=== PATIENT | female | born 1995 | race Caucasian/White ===

== ENCOUNTER 2020-08-18 00:14 | Emergency (ER) | payer SELFPAY ==
--- NOTE | 2020-08-18 | US_ITS ---
EXAMINATION: ULTRASOUND PELVIS, COMPLETE CLINICAL INFORMATION: Right lower quadrant pain. COMPARISON: 09/12/2013 TECHNIQUE: Transabdominal and transvaginal imaging of the pelvic viscera was performed utilizing grayscale and color Doppler technique with spectral analysis. FINDINGS: Uterus normal in size and configuration measuring 7.1 x 2.7 x 4.6 cm. Endometrial signature measures 0.4 cm and is homogeneous. No uterine mass or endometrial abnormalities. Cervix unremarkable. Right ovary contains a 4.3 x 3.3 x 4.1 cm complicated cyst which appears to contain contracted clot. Right ovary is splayed around this cyst and measures 5.2 x 4.0 x 3.8 cm. Left ovary measures 3.4 x 2.8 x 2.3 cm and shows multiple peripherally distributed similar size small follicles with a echogenic central stroma, as can be seen with polycystic ovarian syndrome. Normal arterial and venous waveforms present within both ovaries. US/US pelvic complete IMPRESSION: No evidence of ovarian torsion. Right ovarian hemorrhagic cyst measuring 4.3 cm. Consider follow-up ultrasound in 4-6 weeks to confirm resolution.
[2020-08-18 00:23] VITALS: BP 126/77; PULSE 78; RESP 16; TEMP 36.9; O2SAT 99; BMI 29.4
--- NOTE | 2020-08-18 00:39 | US_ITS ---
EXAMINATION: ULTRASOUND PELVIS, COMPLETE CLINICAL INFORMATION: Right lower quadrant pain. COMPARISON: 09/12/2013 TECHNIQUE: Transabdominal and transvaginal imaging of the pelvic viscera was performed utilizing grayscale and color Doppler technique with spectral analysis. FINDINGS: Uterus normal in size and configuration measuring 7.1 x 2.7 x 4.6 cm. Endometrial signature measures 0.4 cm and is homogeneous. No uterine mass or endometrial abnormalities. Cervix unremarkable. Right ovary contains a 4.3 x 3.3 x 4.1 cm complicated cyst which appears to contain contracted clot. Right ovary is splayed around this cyst and measures 5.2 x 4.0 x 3.8 cm. Left ovary measures 3.4 x 2.8 x 2.3 cm and shows multiple peripherally distributed similar size small follicles with a echogenic central stroma, as can be seen with polycystic ovarian syndrome. Normal arterial and venous waveforms present within both ovaries. US/US transvaginal IMPRESSION: No evidence of ovarian torsion. Right ovarian hemorrhagic cyst measuring 4.3 cm. Consider follow-up ultrasound in 4-6 weeks to confirm resolution.
--- NOTE | 2020-08-18 00:39 | ED_ITS ---
HPI - Female Genitourinary General Chief complaint: Urogenital-Female Stated complaint: ABD PAIN Time Seen by Provider: 08/18/20 00:25 Source: patient Mode of arrival: ambulatory Limitations: no limitations History of Present Illness HPI Narrative: This is a 24-year-old female who presents with acute onset right lower quadrant discomfort that started approximately 1 hour ago and is associated with nausea and chills but otherwise denies any urinary pain/burning/frequency, diarrhea. Patient states her LMP was around Thanksgiving and she started an OCP approximately 2 weeks ago. She is sexually active and states that previously she has had this right-sided pain before and has a history of having multiple ultrasounds for evaluation and is known to have ovarian cysts. Related Data Allergies Allergy/AdvReac Type Severity Reaction Status Date / Time No Known Allergies Allergy Verified 08/18/20 00:23 [No Known Allergies*] Review of Systems Review of Systems: Pertinent positives and negatives as stated in HPI and 10 point review of systems is otherwise negative. [facility] Past Medical History Source: nursing notes reviewed Social History Social History Advance Directives: No Physical Exam Vital Signs: Vital Signs: Last Vital Signs Temp 98.5 F 08/18/20 00:23 Pulse 78 08/18/20 00:23 Resp 16 08/18/20 00:23 BP 126/77 08/18/20 00:23 Pulse Ox 99 08/18/20 00:23 Body Mass Index 29.4 VITAL SIGNS: Reviewed. GENERAL: Well developed, well nourished, in no acute distress. HEAD: Normocephalic/atraumatic, EYES: PERRLA, EOMI intact without pain, no nystagmus/pallor/icterus noted EARS: Ext canals without abnormality, TMs non-bulging and non-erythematous NOSE: Nares patent bilateral OROPHARYNX: no oral lesions noted, posterior pharynx clear and non-erythematous without noted tonsillar enlargement/erythema/exudates NECK: Supple, no adenopathy LUNGS: Normal breath sounds. No adventitious sounds or accessory muscle use. SpO2<99> CARDIOVASCULAR: Regular rate and rhythm without noted murmurs, no JVD or lower extremity edema. ABDOMEN: Soft, maximal tenderness in the right lower quadrant with more mild tenderness over the suprapubic area, non-distended with bowel sounds. No rigidity. No guarding. No palpable masses or hernias noted MUSCULOSKELETAL: No tenderness, deformities, or effusions noted on gross inspection. EXTREMITIES: No cyanosis, clubbing or edema. SKIN: Inspection of the skin reveals no rashes, ulcerations, jaundice, pallor, or petechiae. NEUROLOGIC: Alert and oriented x 4. Strength and sensation to light touch were grossly intact x 4. Course Course Course Narrative: This is a 24-year-old female with history and clinical p resentation suggestive of possible appendicitis, renal colic, ruptured ovarian cyst, and less likely ovarian torsion or UTI. -UA, U preg, CBC, CMP, transvaginal/pelvic Doppler On review of all investigations there is no evidence of infection, ovarian torsion, ectopic , UTI. Ultrasound does illustrate a right hemorrhagic cyst and recommendations are for follow-up in 4-6 weeks. All results and findings were discussed with the patient at bedside and she was discharged in stable condition with recommendations for combination analgesics to help manage the discomfort. MDM - Female Genitourinary Lab Data Result diagrams: 08/18/20 01:01 08/18/20 01:01 Labs: Lab Results 08/18/20 08/18/20 08/18/20 Range/Units 00:34 01:01 01:01 WBC 7.5 (4.8-10.8) X10*3/uL RBC 3.83 L (4.20-5.50) X10*6/uL Hgb 11.6 L (12.0-16.0) g/dl Hct 35.0 L (37-47) % MCV 91.4 (80-98) fL MCH 30.3 (27.0-33.0) pg MCHC 33.1 (31.0-35.0) g/dl RDW 11.8 (11.0-16.0) % Plt Count 232 (160-400) X10*3/uL MPV 9.5 (9.4-12.3) fL Immature Gran % (Auto) 0.1 (0.0-0.4) % Neut % (Auto) 52.5 (45-73) % Lymph % (Auto) 39.2 (20-40) % [place] % (Auto) 6.1 (2-11) % Eos % (Auto) 1.7 (0-4) % Baso % (Auto) 0.4 (0-2) % Lymph # (Auto) 2.9 (1.2-4.9) X10*3/uL [place] # (Auto) 0.5 (0.1-1.2) X10*3/uL Eos # (Auto) 0.1 (0.0-0.4) X10*3/uL Baso # (Auto) 0.0 (0.0-0.2) X10*3/uL Abs Immat Gran (auto) 0.01 (0.00-0.03) X10*3/uL Absolute Neuts (auto) 3.9 (2.0-8.3) X10*3/uL Absolute Nucleated RBC 0.000 (0.0-0.012) X10*3/uL Nucleated RBC % (auto) 0.0 (0.0-0.2) /100WBC Sodium 137 (135-145) mmol/L Potassium 4.6 (3.3-5.1) mmol/l Chloride 105 (96-108) mmol/L Carbon Dioxide 22 (22-29) mmol/L Anion Gap 15 (12-20) BUN 13 (9-16) mg/dL Creatinine 0.70 (0.5-1.4) mg/dL Estim Creat Clear Calc 129.7 Estimated GFR > 60 Random Glucose 87 (60-115) mg/dL Calcium 8.7 (8.4-10.2) mg/dL Total Bilirubin 0.4 (0.0-1.0) mg/dL AST 22 (5-31) U/L ALT 12 (0-31) U/L Alkaline Phosphatase 43 (39-117) U/L Total Protein 7.0 (6.5-8.0) g/dL Albumin 4.2 (3.5-5.0) g/dL Urine Color YELLOW Urine Appearance CLEAR Urine pH 6.0 (5.0-8.0) Ur Specific [place] 1.010 (1.005-1.025) Urine Protein NEG (NEG-TRACE) MG/DL Urine Glucose (UA) NEG (NEG) MG/DL Urine Ketones 5 (NEG) MG/DL Urine Blood NEG (NEG) Urine Nitrite NEG (NEG) Ur Leukocyte Esterase NEG (NEG) Urine Test NEGATIVE (NEGATIVE) Discharge Plan Discharge Clinical Impression: Hemorrhagic cyst of right ovary Patient Disposition: Home, Self-Care Instructions: Ovarian Cyst (ED) Additional Instructions: 1. Tylenol 1000 mg, orally, every 6 hours as needed for pain control. Do not exceed 4000 mg within 24 hours. 2. Ibuprofen 400 mg, orally with milk or food, every 6 hours as needed for pain control. 3. May use heating pad as an adjunct for additional symptom relief. 4. You need to follow-up with your primary care provider or your rn coronary care unit for repeat ultrasound in 4-6 weeks. 5. Please do not hesitate to return to the emergency department if you have any acute change in your symptoms. The patient and/or family acknowledge understanding of results (as applicable), diagnosis, treatment plan, need for follow up, and symptoms that should prompt a return to the emergency room. Referrals: Physician,None [Primary Care Provider] - 2 days (Re-evaluation management)
--- NOTE | 2020-08-18 00:39 | US_ITS ---
EXAMINATION: ULTRASOUND PELVIS, COMPLETE CLINICAL INFORMATION: Right lower quadrant pain. COMPARISON: 09/12/2013 TECHNIQUE: Transabdominal and transvaginal imaging of the pelvic viscera was performed utilizing grayscale and color Doppler technique with spectral analysis. FINDINGS: Uterus normal in size and configuration measuring 7.1 x 2.7 x 4.6 cm. Endometrial signature measures 0.4 cm and is homogeneous. No uterine mass or endometrial abnormalities. Cervix unremarkable. Right ovary contains a 4.3 x 3.3 x 4.1 cm complicated cyst which appears to contain contracted clot. Right ovary is splayed around this cyst and measures 5.2 x 4.0 x 3.8 cm. Left ovary measures 3.4 x 2.8 x 2.3 cm and shows multiple peripherally distributed similar size small follicles with a echogenic central stroma, as can be seen with polycystic ovarian syndrome. Normal arterial and venous waveforms present within both ovaries. US/US pelvic ovarian doppler IMPRESSION: No evidence of ovarian torsion. Right ovarian hemorrhagic cyst measuring 4.3 cm. Consider follow-up ultrasound in 4-6 weeks to confirm resolution.
[2020-08-18 00:42] LABS: Glucose Urine UA NEG (NEG); Leukocyte Esterase Urine NEG (NEG); Nitrite Urine NEG (NEG); Urine Blood NEG (NEG); Urine Ketones 5 MG/DL (NEG); Urine Protein NEG (NEG-TRACE)
[2020-08-18 00:44] LABS: Appearance Urine CLEAR; Color Urine YELLOW
[2020-08-18 00:45] LABS: UPreg QC Valid YES; Urine Pregnancy NEGATIVE (NEGATIVE)
[2020-08-18 01:07] LABS: Basophils Percent Auto 0.4 % (0-2); Eosinophils Absolute Auto 0.1 X10*3/uL (0.0-0.4); Eosinophils Percent Auto 1.7 % (0-4); Hemoglobin 11.6 g/dl (12.0-16.0); Imm Gran Abs Auto 0.01 X10*3/uL (0.00-0.03); Imm Gran Pct Auto 0.1 % (0.0-0.4); Lymphocytes Absolute Auto 2.9 X10*3/uL (1.2-4.9); Lymphocytes Percent Auto 39.2 % (20-40); Mean Corpuscular HGB Conc 33.1 g/dl (31.0-35.0); Mean Corpuscular Hemoglobin 30.3 pg (27.0-33.0); Mean Corpuscular Volume 91.4 fL (80-98); Mean Platelet Volume 9.5 fL (9.4-12.3); Monocytes Absolute Auto 0.5 X10*3/uL (0.1-1.2); Monocytes Percent Auto 6.1 % (2-11); Neutrophils Absolute Auto 3.9 X10*3/uL (2.0-8.3); Neutrophils Percent Auto 52.5 % (45-73); Platelet Count 232 X10*3/uL (160-400); Red Blood Count 3.83 X10*6/uL (4.20-5.50); Red Cell Distribution Width 11.8 % (11.0-16.0); White Blood Count 7.5 X10*3/uL (4.8-10.8)
[2020-08-18 01:08] LABS: MANUAL DIFF FLAG NO
[2020-08-18 01:49] LABS: Alanine Aminotransferase 12 U/L (0-31); Albumin Level 4.2 g/dL (3.5-5.0); Alkaline Phosphatase 43 U/L (39-117); Anion Gap 15 (12-20); Aspartate Amino Transferase 22 U/L (5-31); Bilirubin Total 0.4 mg/dL (0.0-1.0); Blood Urea Nitrogen 13 mg/dL (9-16); Calcium 8.7 mg/dL (8.4-10.2); Carbon Dioxide 22 mmol/L (22-29); Chloride 105 mmol/L (96-108); Creatinine Clr Calc Pharmacy 129.7; Estimated Glomerular Filt Rate > 60; Glucose Random 87 mg/dL (60-115); Potassium 4.6 mmol/l (3.3-5.1); Sodium 137 mmol/L (135-145)
[2020-08-18 02:00] VITALS: BP 118/70; PULSE 70; RESP 16; TEMP 36.7; O2SAT 99
== END 2020-08-18 02:48 | disposition home or self-care (01) ==
PROVIDERS: Emergency Provider Student in an Organized Health Care Education/Training Program
DX: N83.201 Unspecified ovarian cyst, right side (principal)
CPT/HCPCS: 36415; 76830; 76856; 80053; 81003; 81025; 85025; 93975; 99284

== ENCOUNTER 2020-09-27 17:28 | Emergency (ER) | payer OTHER, SELFPAY ==
[2020-09-27 17:45] VITALS: BP 124/77; PULSE 87; RESP 18; TEMP 37.1; O2SAT 98; BMI 23.4
[2020-09-27 18:06] LABS: Glucose Urine UA NEG (NEG); Leukocyte Esterase Urine NEG (NEG); Nitrite Urine NEG (NEG); Urine Blood NEG (NEG); Urine Ketones NEG (NEG); Urine Protein NEG (NEG-TRACE)
[2020-09-27 18:11] LABS: Appearance Urine CLEAR; Color Urine STRAW
[2020-09-27 18:12] LABS: UPreg QC Valid YES; Urine Pregnancy NEGATIVE (NEGATIVE)
--- NOTE | 2020-09-27 18:48 | ED.GENADULT ---
HPI - General Adult General Chief complaint: General Medical Stated complaint: MIGRAINE Time Seen by Provider: 09/27/20 18:22 Source: patient Mode of arrival: ambulatory Limitations: no limitations History of Present Illness HPI narrative: 24-year-old female who presents emergency department for evaluation of headache x1 week. The patient states that she has a history of migraines. She developed a headache 1 week prior which she describes as a constant, pressure-like sensation which is located throughout her entire head and is 10/10 at its worst. At the time of evaluation the pain was 5/10. She states that she has nausea but no vomiting associated with the headache. She states that she has had changes in her sense of taste and smell. The patient was seen 24 hours prior at [facility] Emergency Department and had a negative COVID-19 test, unremarkable blood work and was treated with IV medications with some relief for pain. She states that her pain did not go away completely and has persisting therefore she came to our emergency department for re-evaluation. The patient states she has been taking ibuprofen and Excedrin without relief for pain. She has also tried NyQuil and DayQuil. She denied fever, chills, myalgias, arthralgias, diarrhea, fatigue or weakness. Related Data Previous Rx's Medication Instructions Recorded metoclopramide HCl [Reglan] 10 mg PO Q6H PRN #14 tab 09/27/20 Allergies Allergy/AdvReac Type Severity Reaction Status Date / Time No Known Allergies Allergy Verified 09/27/20 17:42 [No Known Allergies*] Review of Systems Review of Systems: Yes all other systems are reviewed and are negative Neurologic: Reports Abnormal speech present [facility] Past Medical History [facility] Narrative: Patient has a history of migraine headaches, ovarian cysts and psoriasis. She denies tobacco, and drug use. She occasionally drinks alcohol. Social History Social History Advance Directives: No Advance Directives Information Provided: No Physical Exam Vital Signs: Vital Signs: Last Vital Signs Temp 98.8 F 09/27/20 17:45 Pulse 87 09/27/20 17:45 Resp 18 09/27/20 17:45 BP 124/77 09/27/20 17:45 Pulse Ox 98 09/27/20 17:45 Body Mass Index 23.4 Const: General: cooperative and healthy appearing Orientation/consciousness: oriented to person and oriented to place Limitations: no limitations HENMT: Head: Yes normal to inspection, Yes normocephalic and Yes atraumatic Ears: external ears normal General nose exam: Normal external nose present Face and sinus: Yes normal facial exam Mouth: Normal oral and palatal mucosa present Throat: Yes posterior oropharynx normal Eyes: Periorbital: periorbital findings normal Eyelids: Yes eyelids normal Conjunctivae: conjunctivae normal Sclerae: sclerae normal Corneas: corneas normal Pupils: Equal, round and reactive pupils present Direct Ophthalmoscopy: normal light reflex Neck: Neck: Yes full ROM, Yes no lymphadenopathy, Yes no meningeal signs, Yes trachea midline and Yes supple Chest: Chest palpation & inspection: normal inspection of the chest and normal palpation of entire chest wall Resp: Effort & Inspection: normal respiratory effort and able to speak in complete sentences Auscultation: clear to auscultation bilaterally Cardio: Rate: regular rate Rhythm: regular rhythm Heart sounds: S1 normal heart sound present, S2 normal heart sound present and no murmurs GI: Inspection: Yes normal to inspection Palpation (GI): Soft to palpation, nontender, no guarding, not rigid and No hepatosplenomegaly present : General: Yes no CVA tenderness Back/Spine/Pelvis: Back: no CVA tenderness Cervical Spine: normal cervical lordosis Thoracic/Lumbar Spine: thoracic and lumbar spine normal to inspection Skin: Lesions: no lesions Rashes: no rashes Wounds: no wounds Neuro: General: oriented to person, oriented to place and no meningeal signs Cranial nerves: Yes CN's II-XII intact bilaterally and Yes Equal, round and reactive pupils present Cognition (Neuro): normal cognition Speech: Abnormal speech present Motor exam (neuro): 5/5 motor strength present throughout Extrem: General: Yes normal to inspection and Yes full ROM Psych: Appearance: well kempt Mental Status: mental status grossly normal Speech and movement: Normal speech and movement present Affect: normal affect Attitude: cooperative Thought process: Normal thought process present Thought content: Normal thought content present Course Course Course Narrative: 24-year-old female with a history of migraine headaches who presents emergency department for evaluation of a headache x1 week. The patient was seen at [facility] yesterday and had negative COVID-19 test. Her examination at this time is unremarkable. My impression is that her headache is secondary to her migraine syndrome and I did discuss this with her. I did discuss the possibility of a false negative COVID and I told the patient that she should self isolate for 7 days and then get a repeat COVID test. The patient did not want IV medications at this time and wants to try something that she can take at home orally. The patient was started on the following regimen every 6 hours as needed for headache: Reglan 10 mg, Benadryl 50 mg, Excedrin migraine 1 tablet. She was given printed and verbal instructions and discharged home, she was advised to return to the emergency department if her symptoms get worse or she develops any symptoms that are concerning to her. Medical Decision Making Lab Data Labs: Lab Results 09/27/20 Range/Units 17:54 Urine Color STRAW Urine Appearance CLEAR Urine pH 6.0 (5.0-8.0) Ur Specific [place] 1.010 (1.005-1.025) Urine Protein NEG (NEG-TRACE) MG/DL Urine Glucose (UA) NEG (NEG) MG/DL Urine Ketones NEG (NEG) MG/DL Urine Blood NEG (NEG) Urine Nitrite NEG (NEG) Ur Leukocyte Esterase NEG (NEG) Urine Test NEGATIVE (NEGATIVE) Discharge Plan Discharge Clinical Impression: Migraine Qualifiers: Migraine type: without aura Status migrainosus presence: without status migrainosus Intractability: not intractable Qualified Code(s): G43.009 - Migraine without aura, not intractable, without status migrainosus Patient Disposition: Home, Self-Care Instructions: Acute Headache (ED) Additional Instructions: At this time, I suspect that your headache is caused by your migraine syndrome and this is just a different migraine headache for you. COVID-19 infection still needs to be considered as a possible cause of your headache. You will need a repeat COVID-19 test in 3-7 days. You will need to self isolate until you know the result of your neck is test. And take the following medications together every 6 hours as needed for your headache. Excedrin migraine 1 pill Benadryl 25 mg pills, 2 pills Reglan (metoclopramide) 10 mg pills, 1 pill. This medication treat migraines and nausea and vomiting. After you take these medications, lie down in a dark quiet room and try to fall asleep. These medications will make you sleepy. Do not drive while taking these medications. Follow-up with your doctor in 2 days. Please return to the emergency department if your symptoms get worse or if you develop any symptoms that are concerning to you. Prescriptions: New metoclopramide HCl [Reglan] 10 mg tablet 10 mg PO Q6H PRN (Reason: nausea and vomiting) Qty: 14 RF: 0
== END 2020-09-27 19:00 | disposition home or self-care (01) ==
PROVIDERS: Internal Medicine; Emergency Provider Emergency Medicine Emergency Medical Services
DX: G43.009 Migraine without aura, not intractable, without status migrainosus (principal); Z20.822 Contact with and (suspected) exposure to COVID-19; Z79.899 Other long term (current) drug therapy
CPT/HCPCS: 81003; 81025; 99283

== ENCOUNTER 2020-11-09 00:56 | Emergency (ER) | payer OTHER, SELFPAY ==
--- NOTE | ~2020-11-09 | US_ITS ---
EXAMINATION: ULTRASOUND PELVIS CLINICAL INFORMATION: Pain COMPARISON: 08/18/2020 TECHNIQUE: Sonographic evaluation of the pelvis was performed transabdominally and transvaginally. Color Doppler and spectral analysis was utilized. FINDINGS: The uterus measures 6.5 cm in length and 3.7 x 4.4 cm in AP and transverse dimensions. The endometrial stripe measures 0.4 cm in thickness. The right ovary measures 6.7 x 3.0 x 4.5 cm and contains a cystic structure measuring 5.0 x 3.0 x 4.1 cm with minimal internal echoes. There is also a hypoechoic region in the right ovary measuring 1.6 x 1.1 x 1.1 cm. Doppler evaluation demonstrates arterial and venous waveforms in the right ovary. The left ovary measures 3.3 x 2.7 x 2.6 cm and appears unremarkable. Doppler evaluation demonstrates arterial and venous waveforms in the left ovary. Moderate amount of pelvic free fluid is noted. US/US pelvic ovarian doppler IMPRESSION: 1. Right ovarian cyst measuring up to 5.0 cm. There is also a hypoechoic structure in the right ovary measuring 1.6 cm which may reflect sequelae of a residual hemorrhagic cyst when compared to prior study of 08/18/2020. Sonographic follow-up in 6-8 weeks may be performed to assess for resolution. 2. Moderate amount of pelvic free fluid. 3. Normal arterial and venous waveforms in the ovaries.
--- NOTE | ~2020-11-09 | US_ITS ---
EXAMINATION: ULTRASOUND PELVIS CLINICAL INFORMATION: Pain COMPARISON: 08/18/2020 TECHNIQUE: Sonographic evaluation of the pelvis was performed transabdominally and transvaginally. Color Doppler and spectral analysis was utilized. FINDINGS: The uterus measures 6.5 cm in length and 3.7 x 4.4 cm in AP and transverse dimensions. The endometrial stripe measures 0.4 cm in thickness. The right ovary measures 6.7 x 3.0 x 4.5 cm and contains a cystic structure measuring 5.0 x 3.0 x 4.1 cm with minimal internal echoes. There is also a hypoechoic region in the right ovary measuring 1.6 x 1.1 x 1.1 cm. Doppler evaluation demonstrates arterial and venous waveforms in the right ovary. The left ovary measures 3.3 x 2.7 x 2.6 cm and appears unremarkable. Doppler evaluation demonstrates arterial and venous waveforms in the left ovary. Moderate amount of pelvic free fluid is noted. US/US transvaginal IMPRESSION: 1. Right ovarian cyst measuring up to 5.0 cm. There is also a hypoechoic structure in the right ovary measuring 1.6 cm which may reflect sequelae of a residual hemorrhagic cyst when compared to prior study of 08/18/2020. Sonographic follow-up in 6-8 weeks may be performed to assess for resolution. 2. Moderate amount of pelvic free fluid. 3. Normal arterial and venous waveforms in the ovaries.
--- NOTE | ~2020-11-09 | US_ITS ---
EXAMINATION: ULTRASOUND PELVIS CLINICAL INFORMATION: Pain COMPARISON: 08/18/2020 TECHNIQUE: Sonographic evaluation of the pelvis was performed transabdominally and transvaginally. Color Doppler and spectral analysis was utilized. FINDINGS: The uterus measures 6.5 cm in length and 3.7 x 4.4 cm in AP and transverse dimensions. The endometrial stripe measures 0.4 cm in thickness. The right ovary measures 6.7 x 3.0 x 4.5 cm and contains a cystic structure measuring 5.0 x 3.0 x 4.1 cm with minimal internal echoes. There is also a hypoechoic region in the right ovary measuring 1.6 x 1.1 x 1.1 cm. Doppler evaluation demonstrates arterial and venous waveforms in the right ovary. The left ovary measures 3.3 x 2.7 x 2.6 cm and appears unremarkable. Doppler evaluation demonstrates arterial and venous waveforms in the left ovary. Moderate amount of pelvic free fluid is noted. US/US pelvic complete IMPRESSION: 1. Right ovarian cyst measuring up to 5.0 cm. There is also a hypoechoic structure in the right ovary measuring 1.6 cm which may reflect sequelae of a residual hemorrhagic cyst when compared to prior study of 08/18/2020. Sonographic follow-up in 6-8 weeks may be performed to assess for resolution. 2. Moderate amount of pelvic free fluid. 3. Normal arterial and venous waveforms in the ovaries.
[2020-11-09 01:22] VITALS: BP 120/82; PULSE 81; RESP 16; TEMP 36.7; O2SAT 100
--- NOTE | 2020-11-09 01:33 | ED.ABDPAIN ---
HPI - Abdominal Pain General Chief Complaint: Abdominal Pain Stated Complaint: Abd pain Time Seen by Provider: 11/09/20 01:33 Source: patient Mode of arrival: ambulatory Limitations: no limitations History of Present Illness HPI narrative: 24 yo female with abrupt onset pelvic pain hx of ovarian cysts on OCPs, pain caused n/v and feeling of having BM, had a normal day prior to this MD elicited complaint: abdominal pain Pertinent past history: other (ovarian cysts) Onset (ago): hour(s) (couple) Pain Consistency: constant Location: suprapubic and pelvis Severity: moderate Quality: stabbing Radiation: epigastric Migration to: no migration Exacerbating factors: vomiting and movement Relieving factors: nothing Context: history of similar episodes Associated symptoms: nausea and vomiting Related Data Previous Rx's Medication Instructions Recorded metoclopramide HCl [Reglan] 10 mg PO Q6H PRN #14 tab 09/27/20 hydrocodone-acetaminophen 1 tab PO Q6H PRN #12 tab 11/09/20 ondansetron 4 mg PO Q8H PRN #20 tab 11/09/20 Allergies Allergy/AdvReac Type Severity Reaction Status Date / Time No Known Allergies Allergy Verified 09/27/20 17:42 [No Known Allergies*] Review of Systems Review of Systems Constitutional : No Weight loss, No Fever, No Chills ENT/Mouth : No sore throat, No Rhinorrhea Eyes: No Swelling, No Redness Cardiovascular : No Chest Pain, No SOB, NoEdema Respiratory : No Cough, No Sputum, No Wheezing Gastrointestinal : Positive Nausea, Positive Vomiting, no Diarrhea, positive abdominal Pain, No Hematochezia, No Melena Genitourinary : No Dysuria, No Urinary Frequency, No Hematuria, No Urgency Musculoskeletal : No joint pain, No Myalgias, No Joint Swelling Skin : No Skin Lesions, No rash Neuro : No Weakness, No Numbness, No Dizziness, No Headache Psych : No Anxiety/Panic, No Depression Heme/Lymph: No Bruising, No Lymphadenopathy Endocrine : No Polyuria, No Polydipsia All other systems reviewed and are negative. Physical Exam Vital Signs: Vital Signs: Last Vital Signs Temp 98.0 F 11/09/20 01:22 Pulse 74 11/09/20 02:00 Resp 16 11/09/20 02:00 BP 119/66 11/09/20 02:00 Pulse Ox 100 11/09/20 02:00 Body Mass Index 30.0 Appearance: Alert. Oriented X3. No acute distress. Eyes: Pupils equal, round and reactive to light. ENT: Pharynx normal. Neck: Normal inspection. Neck supple. CVS: Normal heart rate and rhythm. Pulses normal. Respiratory: No respiratory distress. Breath sounds normal. Abdomen: Soft and moderate ttp in suprapubic as well as RLQ and LLE pain no rebound or guarding Skin: Skin warm and dry. Normal skin color. Normal skin turgor. Extremities: No lower extremity edema. No calf ttp Neuro: Oriented X 3. No motor deficit. No sensory deficit. Course Course Course Narrative: repeat H/H stable MDM - Abdominal Pain MDM Narrative Medical decision making narrative: 24 yo female with hx of ovarian cysts here with lower abdominal pain abrupt onset in nature - feels like a cyst but somewhat worse, felt fine all day appendicitis seems unusual will need labs, IV morphine for pain, US to evaluate ovaries for suspected ruptured cyst Lab Data Result diagrams: 11/09/20 02:25 11/09/20 Unknown Labs: Lab Results 11/09/20 11/09/20 11/09/20 Range/Units 02:25 02:25 02:29 WBC 6.8 (4.8-10.8) X10*3/uL RBC 3.94 L (4.20-5.50) X10*6/uL Hgb 12.0 (12.0-16.0) g/dl Hct 36.4 L (37-47) % MCV 92.4 (80-98) fL MCH 30.5 (27.0-33.0) pg MCHC 33.0 (31.0-35.0) g/dl RDW 11.9 (11.0-16.0) % Plt Count 258 (160-400) X10*3/uL MPV 9.3 L (9.4-12.3) fL Immature Gran % (Auto) 0.1 (0.0-0.4) % Neut % (Auto) 62.7 (45-73) % Lymph % (Auto) 27.7 (20-40) % [place] % (Auto) 7.8 (2-11) % Eos % (Auto) 1.3 (0-4) % Baso % (Auto) 0.4 (0-2) % Lymph # (Auto) 1.9 (1.2-4.9) X10*3/uL [place] # (Auto) 0.5 (0.1-1.2) X10*3/uL Eos # (Auto) 0.1 (0.0-0.4) X10*3/uL Baso # (Auto) 0.0 (0.0-0.2) X10*3/uL Abs Immat Gran (auto) 0.01 (0.00-0.03) X10*3/uL Absolute Neuts (auto) 4.2 (2.0-8.3) X10*3/uL Absolute Nucleated RBC 0.000 (0.0-0.012) X10*3/uL Nucleated RBC % (auto) 0.0 (0.0-0.2) /100WBC PT 10.7 L (10.8-13.0) SEC INR 0.9 (0.9-1.1) APTT 31.9 (24.1-38.0) SEC Sodium (135-145) mmol/L Potassium (3.3-5.1) mmol/L Chloride (96-108) mmol/L Carbon Dioxide (22-29) mmol/L Anion Gap (12-20) BUN (9-16) mg/dL Creatinine (0.5-1.4) mg/dL Estim Creat Clear Calc Estimated GFR Random Glucose (60-115) mg/dL Calcium (8.4-10.2) mg/dL Magnesium (1.6-2.6) mg/dL Total Bilirubin (0.0-1.0) mg/dL Direct Bilirubin (0.0-0.5) mg/dL AST (5-31) U/L ALT (0-31) U/L Alkaline Phosphatase (39-117) U/L Total Protein (6.5-8.0) g/dL Albumin (3.5-5.0) g/dL Lipase (8-78) U/L Specimen Comment DELAY 11/09/20 Range/Units Unknown WBC (4.8-10.8) X10*3/uL RBC (4.20-5.50) X10*6/uL Hgb (12.0-16.0) g/dl Hct (37-47) % MCV (80-98) fL MCH (27.0-33.0) pg MCHC (31.0-35.0) g/dl RDW (11.0-16.0) % Plt Count (160-400) X10*3/uL MPV (9.4-12.3) fL Immature Gran % (Auto) (0.0-0.4) % Neut % (Auto) (45-73) % Lymph % (Auto) (20-40) % [place] % (Auto) (2-11) % Eos % (Auto) (0-4) % Baso % (Auto) (0-2) % Lymph # (Auto) (1.2-4.9) X10*3/uL [place] # (Auto) (0.1-1.2) X10*3/uL Eos # (Auto) (0.0-0.4) X10*3/uL Baso # (Auto) (0.0-0.2) X10*3/uL Abs Immat Gran (auto) (0.00-0.03) X10*3/uL Absolute Neuts (auto) (2.0-8.3) X10*3/uL Absolute Nucleated RBC (0.0-0.012) X10*3/uL Nucleated RBC % (auto) (0.0-0.2) /100WBC PT (10.8-13.0) SEC INR (0.9-1.1) APTT (24.1-38.0) SEC Sodium 137 (135-145) mmol/L Potassium 4.3 (3.3-5.1) mmol/L Chloride 105 (96-108) mmol/L Carbon Dioxide 25 (22-29) mmol/L Anion Gap 10 L (12-20) BUN 16 (9-16) mg/dL Creatinine 0.66 (0.5-1.4) mg/dL Estim Creat Clear Calc 134.0 Estimated GFR > 60 Random Glucose 102 (60-115) mg/dL Calcium 8.9 (8.4-10.2) mg/dL Magnesium 1.8 (1.6-2.6) mg/dL Total Bilirubin 0.2 (0.0-1.0) mg/dL Direct Bilirubin < 0.2 (0.0-0.5) mg/dL AST 14 (5-31) U/L ALT 14 (0-31) U/L Alkaline Phosphatase 43 (39-117) U/L Total Protein 6.7 (6.5-8.0) g/dL Albumin 4.3 (3.5-5.0) g/dL Lipase 26 (8-78) U/L Specimen Comment Discharge Plan Discharge Clinical Impression: Ovarian cyst rupture, Ovarian cyst Patient Disposition: Home, Self-Care Instructions: Ruptured Ovarian Cyst (ED) Additional Instructions: return to ED for any worsening symptoms or concerns REPEAT ULTRASOUND IN 4 WEEKS Prescriptions: New hydrocodone-acetaminophen 5-325 mg tablet 1 tab PO Q6H PRN (Reason: pain) Qty: 12 RF: 0 ondansetron 4 mg tablet,disintegrating 4 mg PO Q8H PRN (Reason: nausea and vomiting) Qty: 20 RF: 0 No Action metoclopramide HCl [Reglan] 10 mg tablet 10 mg PO Q6H PRN (Reason: nausea and vomiting) Qty: 14 RF: 0 Referrals: Physician,None [Primary Care Provider] - 1 week Stand Alone Forms: Work/School Release [facility] Past Medical History Attestation statement: The following information was validated with the patient. Medical History Ovarian cyst Social History Social History (Updated 11/09/20 @ 01:37 by Juana Mosley DO) Alcohol intake: never Smoking Status: Never smoker Use of substances other than those prescribed or required for medical reasons: No Advance Directives: No Advance Directives Information Provided: No
[2020-11-09 02:00] VITALS: BP 119/66; PULSE 74; RESP 16; O2SAT 100
[2020-11-09 02:30] LABS: Delay - Chemistry DELAY
[2020-11-09 02:32] LABS: Basophils Percent Auto 0.4 % (0-2); Eosinophils Absolute Auto 0.1 X10*3/uL (0.0-0.4); Eosinophils Percent Auto 1.3 % (0-4); Hematocrit 36.4 % (37-47); Imm Gran Abs Auto 0.01 X10*3/uL (0.00-0.03); Imm Gran Pct Auto 0.1 % (0.0-0.4); Lymphocytes Absolute Auto 1.9 X10*3/uL (1.2-4.9); Lymphocytes Percent Auto 27.7 % (20-40); MANUAL DIFF FLAG NO; Mean Corpuscular Hemoglobin 30.5 pg (27.0-33.0); Mean Corpuscular Volume 92.4 fL (80-98); Mean Platelet Volume 9.3 fL (9.4-12.3); Monocytes Absolute Auto 0.5 X10*3/uL (0.1-1.2); Monocytes Percent Auto 7.8 % (2-11); Neutrophils Absolute Auto 4.2 X10*3/uL (2.0-8.3); Neutrophils Percent Auto 62.7 % (45-73); Platelet Count 258 X10*3/uL (160-400); Red Blood Count 3.94 X10*6/uL (4.20-5.50); Red Cell Distribution Width 11.9 % (11.0-16.0); White Blood Count 6.8 X10*3/uL (4.8-10.8)
[2020-11-09] MEDS: Morphine Sulfate 4 MG/ML CARTRIDGE IVPUSH (02:34)
[2020-11-09] MEDS: ondansetron HCL 4 MG/2 ML VIAL IVPUSH (02:34)
[2020-11-09 02:40] LABS: INTERNATIONAL NORM RATIO 0.9 (0.9-1.1); Prothrombin Time 10.7 SEC (10.8-13.0)
[2020-11-09 02:42] LABS: Partial Thromboplastin Time 31.9 SEC (24.1-38.0)
[2020-11-09 03:10] LABS: Alanine Aminotransferase 14 U/L (0-31); Albumin Level 4.3 g/dL (3.5-5.0); Alkaline Phosphatase 43 U/L (39-117); Aspartate Amino Transferase 14 U/L (5-31); Bilirubin Direct < 0.2 mg/dL (0.0-0.5); Bilirubin Total 0.2 mg/dL (0.0-1.0); Blood Urea Nitrogen 16 mg/dL (9-16); Calcium 8.9 mg/dL (8.4-10.2); Carbon Dioxide 25 mmol/L (22-29); Estimated Glomerular Filt Rate > 60; Glucose Random 102 mg/dL (60-115); Lipase 26 U/L (8-78); Magnesium 1.8 mg/dL (1.6-2.6); Total Protein 6.7 g/dL (6.5-8.0)
[2020-11-09 03:41] LABS: Anion Gap 10 (12-20); Chloride 105 mmol/L (96-108); Potassium 4.3 mmol/L (3.3-5.1); Sodium 137 mmol/L (135-145)
[2020-11-09 05:42] LABS: Hematocrit 35.7 % (37-47); Hemoglobin 11.7 g/dl (12.0-16.0); Mean Corpuscular HGB Conc 32.8 g/dl (31.0-35.0); Mean Corpuscular Hemoglobin 30.1 pg (27.0-33.0); Mean Corpuscular Volume 91.8 fL (80-98); Mean Platelet Volume 9.2 fL (9.4-12.3); Platelet Count 242 X10*3/uL (160-400); Red Blood Count 3.89 X10*6/uL (4.20-5.50); Red Cell Distribution Width 11.9 % (11.0-16.0); White Blood Count 7.2 X10*3/uL (4.8-10.8)
== END 2020-11-09 06:10 | disposition home or self-care (01) ==
PROVIDERS: Emergency Provider Emergency Medicine
DX: N83.201 Unspecified ovarian cyst, right side (principal); R10.2 Pelvic and perineal pain
CPT/HCPCS: 36415; 76830; 76856; 80048; 80076; 83690; 83735; 85025; 85027; 85610; 85730; 93975; 96374; 96375; 99284; J2270; J2405

== ENCOUNTER 2021-10-06 15:29 | Outpatient (REF) | payer MEDICAID, SELFPAY ==
[2021-10-06 16:33] LABS: MANUAL DIFF FLAG NO
[2021-10-06 16:55] LABS: Basophils Percent Auto 0.7 % (0-2); Eosinophils Absolute Auto 0.1 X10*3/uL (0.0-0.4); Eosinophils Percent Auto 1.8 % (0-4); Hematocrit 36.8 % (37.0-47.0); Imm Gran Abs Auto 0.01 X10*3/uL (0.00-0.03); Imm Gran Pct Auto 0.2 % (0.0-0.4); Lymphocytes Absolute Auto 1.8 X10*3/uL (1.2-4.9); Lymphocytes Percent Auto 32.7 % (20-40); Mean Corpuscular HGB Conc 32.6 g/dl (31.0-35.0); Mean Corpuscular Hemoglobin 29.9 pg (27.0-33.0); Mean Corpuscular Volume 91.5 fL (80.0-98.0); Mean Platelet Volume 9.3 fL (9.4-12.3); Monocytes Absolute Auto 0.4 X10*3/uL (0.1-1.2); Monocytes Percent Auto 7.5 % (2-11); Neutrophils Absolute Auto 3.1 x10*3/uL (2.0-8.3); Neutrophils Percent Auto 57.1 % (45-73); Platelet Count 284 X10*3/uL (160-400); Red Blood Count 4.02 X10*6/uL (4.20-5.50); Red Cell Distribution Width 12.1 % (11.0-16.0); White Blood Count 5.5 X10*3/uL (4.8-10.8)
[2021-10-06 17:23] LABS: Alanine Aminotransferase 14 U/L (0-31); Albumin Level 4.1 g/dL (3.5-5.0); Alkaline Phosphatase 56 U/L (39-117); Anion Gap 9 (12-20); Aspartate Amino Transferase 14 U/L (5-31); Bilirubin Total 0.2 mg/dL (0.0-1.0); Blood Urea Nitrogen 12 mg/dL (9-16); Calcium 9.2 mg/dL (8.4-10.2); Carbon Dioxide 25 mmol/L (22-29); Chloride 107 mmol/L (96-108); Estimated Glomerular Filt Rate > 60; Glucose Random 101 mg/dL (60-115); Potassium 4.3 mmol/L (3.3-5.1); Sodium 137 mmol/L (135-145); Total Protein 6.7 g/dL (6.5-8.0)
[2021-10-06 17:50] LABS: Vitamin B12 295 pg/mL (200-900)
[2021-10-10 13:06] LABS: Vitamin D 25-OH, D2 <4 ng/mL; Vitamin D 25-OH, D3 14 ng/mL; Vitamin D 25-OH, Total 14 ng/mL (30-100)
== END 2021-10-06 15:30 | disposition home or self-care (01) ==
LOC: HO.LAB 15:29
PROVIDERS: PCP Nurse Practitioner Primary Care; Referring Provider Nurse Practitioner Primary Care; Visit Provider Psychiatry & Neurology Neurology
DX: F45.8 Other somatoform disorders (principal); F51.5 Nightmare disorder; G47.00 Insomnia, unspecified; G47.10 Hypersomnia, unspecified
CPT/HCPCS: 36415; 80053; 82306; 82607; 85025; 99202

== ENCOUNTER → 2022-03-16 22:09 | Outpatient (REF) | payer MEDICAID, SELFPAY | LOC: HO.SL 22:09 | PROVIDERS: Visit Provider Psychiatry & Neurology Neurology | DX: G47.00 Insomnia, unspecified (principal); R06.83 Snoring | CPT/HCPCS: 95810 ==

== ENCOUNTER → 2022-03-23 10:59 | Outpatient (BNVA) | payer MEDICAID, SELFPAY | PROVIDERS: PCP Nurse Practitioner Primary Care; Visit Provider Nurse Practitioner Family | DX: F51.5 Nightmare disorder (principal); F41.9 Anxiety disorder, unspecified | CPT/HCPCS: 99212 ==

== ENCOUNTER 2022-09-06 10:26 | Outpatient (REF) | payer MEDICAID, SELFPAY ==
--- NOTE | ~2022-09-06 | MR_ITS ---
EXAMINATION: MR LUMBAR SPINE WITHOUT AND WITH CONTRAST CLINICAL INFORMATION: 26-year-old with self-reported low back pain with bilateral leg numbness of 6 months duration, worsening in past 2 months. Low back pain/paresthesia of skin. COMPARISON: None TECHNIQUE: MRI of the lumbar spine was obtained using routine sequences with and without contrast. Intravenous contrast: Gadavist 7.5 mL FINDINGS: Coronal Alignment: Trace upper lumbar levocurvature noted on podiatric foot and ankle specialist view which could be positional. Sagittal Alignment: Normal. Lumbosacral Junction: Normal. There are 5 cen-sxt-tfltiir lumbar-type vertebral bodies. Vertebral Bodies: Well maintained with normal height. No compression fractures, anomalies or other deformities. Disc Spaces and Endplates: Slight disc volume loss at L5-S1 with associated disc desiccation consistent with disc degenerative change. Remaining intervertebral discs demonstrate normal height and signal. No significant spondylosis. Endplates appear intact. No abnormal intradiscal or endplate enhancement. Spinal Canal: No abnormal developmental findings. No abnormal leptomeningeal enhancement. Bone Marrow: No significant marrow-replacing process or bone marrow edema and no abnormal bone marrow enhancement. Conus Medullaris: Terminates at L1. Morphology and signal is normal. No abnormal enhancement. Intradural Nerve Roots: Within normal limits. No abnormal intradural enhancement. L5-S1: Broad-based central extruded disc herniation with slight caudal migration with central annular fissuring without nerve root compression or thecal sac encroachment. No significant facet arthrosis. There is also a shallow right subarticular to inferior foraminal disc protrusion encroaching on the inferior right neural foramen which may be contacting, but not compressing the exiting right L5 nerve root sleeve with associated mild right-sided foraminal narrowing. There is minor foraminal narrowing on the left without exiting neural impingement. The remaining lumbar levels demonstrate normal disc contours with no significant facet arthrosis, canal or neuroforaminal stenosis and no evidence for neural impingement. Paraspinal/Retroperitoneal: The paravertebral soft tissues are unremarkable. The visualized retroperitoneal soft tissues structures are unremarkable. MR/MR lumbar spine wo/w con IMPRESSION: 1. Discogenic degenerative changes at L5-S1 with a broad-based central extruded disc herniation with central annular fissuring without nerve root compression or thecal sac encroachment. There is a shallow right subarticular to inferior foraminal disc protrusion at this level which may be contacting, but not compressing the exiting right L5 nerve root sleeve with mild right-sided foraminal narrowing. 2. No abnormal bone marrow, discal, intradural or leptomeningeal enhancement.
== END 2022-09-06 10:27 | disposition home or self-care (01) ==
LOC: HO.MRI 10:26
PROVIDERS: Visit Provider Registered Nurse
DX: M54.50 Low back pain, unspecified (principal); R20.2 Paresthesia of skin
CPT/HCPCS: 72158; A9585

== ENCOUNTER 2024-12-31 08:27 | Outpatient (REF) | payer BC, SELFPAY ==
--- NOTE | ~2024-12-31 | US_ITS ---
CLINICAL HISTORY: umbilical discharge, r o cyst abscess Limited evaluation of the soft tissues of the umbilicus Comparison: None Findings: No evidence of mass lesion, abscess, or lymphadenopathy. Impression: Unremarkable exam. This document has been electronically signed by: Hilda Tello MD on 12/31/2024 10:59:06
--- OUTSIDE RECORDS SUMMARY | 2024-12-31 08:52 | XMS_ITS | Clinical Summary ---
Author Organization [email or web address] Address [address] [place] [address] Care Team Providers Care Systems Integration Manager Name Role Phone Allie Fair DO Primary Care Provider [phone] Allergies No known active allergies Medications * This document contains information received from the source organization and may not represent a complete record from that organization. clobetasol (Temovate) 0.05 % ointment Apply topically every 12 (twelve) hours. 01/14/20 21 Active norgestimate-ethin yl estradiol (Ortho-Cyclen) 0.25-35 MG-MCG tabletIndications: Surveillance for control, oral contraceptives Take 1 tablet by mouth in the morning. 84 tablet 3 11/28/19 24 Active clotrimazole-betam ethasone (Lotrisone) creamIndications:I ntertrigo Apply topically 2 times daily. Use for up to 14 days as needed for rash 45 g 1 11/28/19 24 Active azelaic acid (Finacea) 15 % gel APPLY TOPICALLY TO FACE EVERY NIGHT AT BEDTIME 04/16/20 24 Active Ivermectin 1 % cream APPLY TO FACE EVERY MORNING 04/17/20 24 Active betamethasone dipropionate 0.05 % cream 04/17/20 24 Active cholecalciferol (Replesta) 1.25 MG (05028 UT) waferIndications:V itamin D deficiency Take 1 Wafer (50,000 Units) by mouth 1 (one) time per week. 8 Wafer 08/09/20 24 Active Additional Information Patient not taking.Reported on 11/16/2024 DULoxetine (Cymbalta) 30 MG capsuleIndications :Fibromyalgia Take 1 capsule (30 mg) by mouth Once per day. Do not crush or chew. 90 capsule 1 11/17/19 25 025 Active Active Problems Problem Noted Date Diagnosed Date Other fatigue 08/06/2024 Assessment & Plan (08/06/2024 10:06 PM EST): Reviewed all labs results with pt, would like the f/up labs as discussed r/t persistent fatigue despite what she describes as adequate sleep nightly. Describing rash on her face but not a video visit tonight and no photo uploaded - willing to upload photo if staff can assist her to do so - being treated by derm as if rosacea but Eileen describing burning sensation to face and has had positive JEANCARLOS/titer in past ? Malar rash Also getting PTH/Calcium and Vit D/B12 r/t c/o persistent fatigue. Some sed rate/cortisol elevation normal CRP results await f/up lab results and defer to PCP as discussed with Eileen whether they may want to consult with either rheum or endo pending these followup lab findings. Eileen agrees to plan and has no further questions/concerns at visit conclusion. Class 1 obesity due to exces s calories with serious comorbidity and body mass index (BMI) of 32.0 to 32.9 in adult 08/06/2024 Positive JEANCARLOS (antinuclear antibody) 08/06/2024 Rosacea 11/28/2023 Intertrigo 11/28/2023 Assessment & Plan (11/28/2023 9:35 AM EDT): Umbilical intertrigo refractory to OTC topical antifungal Trial topical antifungal/steroid cream. Discussed preventive measures. Follow up prn Lumbosacral disc herniation 11/21/2022 Overview (11/21/2022): -MRI Sep 2022: Discogenic degenerative changes at L5-S1 with a broad-based central extruded disc herniation with central annular fissuring without nerve root compression or thecal sac encroachment. There is a shallow right subarticular to inferior foraminal disc protrusion at this level which may be contacting, but not compressing the exiting right L5 nerve root sleeve with mild right-sided foraminal narrowing. No abnormal bone marrow, discal, intradural or leptomeningeal enhancement. Assessment & Plan (11/21/2022 4:06 PM EDT): -Referral to PT for further eval and tx -Contact office if interested in referral to Pain management Routine health maintenance 11/19/2022 Overview (11/19/2022): -Pap: Sep 2022 NILM -Contraception: COCPs Assessment & Plan (11/19/2022 11:04 AM EDT): Follow up in 6 Months for PE, sooner as needed Lumbar disc herniation 11/19/2022 Overview (11/19/2022): -Referral to PT on 11/19/22 COVID-19 09/02/2022 Allergic rhinitis 02/08/2018 Psoriasis 02/08/2018 Resolved Problems Problem Noted Date Diagnosed Date Resolved Date Influenza-like symptoms 09/02/2022 01/0 10/2022 Vaginal discharge 09/02/2022 09/06/2022 Encounters Date Type Department Care Team Description 11/26/2024 Telephone [facility] [address] [place] [address] Sanna Ventura RN 11/16/2024 11:15 AM EDT Office Visit [facility] [address] [place] [address] Allie Fair DO Vitamin D deficiency (Primary Dx); Screening for cardiovascular condition; Fibromyalgia; Umbilical discharge 11/16/2024 Travel from Last 3 Months Immunizations Name Administration Dates Next Due DTaP 12/10/1999, 7,06/19/1996,04/16,02/10/1996 DTaP / HiB / IPV 06/21/1997, 7,04/16/1996,02/09 HPV, Quadrivalent 12/26/2012,08/16/2011,10/09/19 11 Hep B, Adolescent or Pediatric 09/17/1996,1995,1995 IPV 12/10/1999, 7,04/16/1996,02/09 MMR 12/10/1999,03/07/1997 Meningococcal MCV4P [id number]-135 12/26/2012,09/17/19 10 Moderna Covid-19 Vaccine 12+ 12/29/2023 Pfizer Covid-19 Vaccine 12+ 05/04/2021, 1 TD (adult), 2 Lf tetanus tox oid, preservative free, adsorbed 04/19/2013 Tdap 12/29/2023,03/07/2007 Varicella 09/17/2009,12/10/1999 Family History Medical History Relation Name Comments Bipolar disorder Brother anxiety and depression Brother Hypertension Father depression and anxiety Father Stroke Maternal Grandfather Diabetes type II Mother Hyperlipidemia Mother Hypertension Mother depression and anxiety Mother thyroid disorder Mother heart issues Paternal Grandmother Relation Name Status Comments Brother Father Maternal Grandfather Mother Paternal Grandmother Social History Tobacco Use Types Packs/Day Years Used Date Smoking Tobacco: Former Cigarettes Passive Smoke Exposure: Past Smokeless Tobacco: Never Tobacco Cessation:Counseling Given: Not Answered Comments:Vape Alcohol Use Standard Drinks/Week Comments Yes 0 (1 standard drink = 0.6 oz pur e alcohol) Ocassionally Alcohol Answer Date Recorded How often do you have a drink containing alcohol ? 0 11/28/2023 How many drinks containing a lcohol do you have on a typical day when you are drinking? 0 11/28/2023 How often do you have six or more drinks on one occasion? 0 11/28/2023 Depression Answer Date Recorded Patient Health Questionnaire-9 Score 0 09/02/2022 Housing Stability Answer Date Recorded What is your housing situation today? I have tennillejeremiah noble 11/28/[address] you li ve. Do you have problems with any of the following? None of the above 11/28/2023 Food Insecurity Answer Date Recorded Within the past 12 months, y ou worried that your food would run out before you got money to buy more: Never True 11/28/2023 Within the past 12 months,th e food you bought just didn't last and you didn't have enough money to get more: Never True Transportation Answer Date Recorded In the past 12 months, has l ack of transportation kept you from medical appts, meetings, work or from getting things needed for daily living? No 11/28/2023 Intimate Partner Violence Answer Date R ecorded Within the last year, have y ou been afraid of your partner or ex-partner? 2 11/28/2023 Within the last year, have y ou been humiliated or emotionally abused in other ways by your partner or ex-partner? 2 Within the last year, have y ou been kicked, hit, slapped, or otherwise physically hurt by your partner or ex-partner? 2 11/28/2023 Within the last year, have y ou been raped or forced to have any kind of sexual activity by your partner or ex-partner? 2 11/28/2023 Utilities Answer Date Recorded In the past 12 months, has t he [employer], gas, oil or water company threatened to shut off services in your home? No 11/28/2023 Depression Answer Date Recorded Patient Health Questionnaire-2 Score 0 11/28/2023 Education Answer Date Recorded What is the highest level of school you have completed or the highest degree you have received? 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 Not on file Not on fi le Last Filed Vital Signs Vital Sign Reading Time Taken Comments Blood Pressure 115/77 11/16/2024 11:18 AM EDT Pulse 93 11/16/2024 11:18 AM EDT Temperature 36.4 ??C (97.5 ??F) 11/16/2024 11:18 AM E DT Respiratory Rate 18 11/19/2022 10:00 AM EDT Oxygen Saturation 98% 11/16/2024 11:18 AM EDT Inhaled Oxygen Concentration - - Weight 93.9 kg (207 lb) 11/16/2024 11:18 AM EDT Height 166.4 cm (5' 5.5 ) 11/16/2024 11:18 AM ED T Body Mass Index 33.92 11/16/2024 11:18 AM EDT Plan of Treatment Upcoming Encounters Date Type Department Care Team (Late st Contact Info) Description 01/04/2025 8:45 AM EDT Office Visit Aaron [facility] [address] [place] [address] Allie Fair DO [address] [place] [address] Health Maintenance Due Date Last Done Comments HIV Screening 1995 Alcohol/Substance Use Screening 2007 Family Planning (PISQ) 12/06/2010 Hepatitis C Screening 12/06/2013 COVID-19 Vaccine ( season) 2024 12/29/2023, 05/04/2021, 04/13/2021 Influenza Vaccine (#1) 2024 Depression Screening 11/27/2024 11/28/2023, 09/02/20 SDOH Screening 11/27/2024 11/28/2023 Tobacco Screening 12/28/2024 12/29/2023 Pap Smear 10/06/2026 10/06/2023, 09/16/2022 Lipid Panel 11/16/2029 11/16/2024 DTaP/Tdap/Td Vaccines (9 - Td or Tdap) 12/28/2033 12/29/2023, 04/19/2013, 03/07/2007, Additional history exists Zoster Vaccines (1 of 2) 12/06/2045 RSV Patients and Patients Aged 60 years or older (1 - 1-dose 75+ series) 12/06/2070 Hepatitis B Vaccines Completed 09/17/1996, 01/06/1996, 1995 HIB Vaccines Completed 06/21/1997, 0711/1996, 04/16/1996, Additional history exists IPV Vaccines Completed 12/10/1999, 06/05, 06/21/1997, Additional history exists HPV Vaccines Completed 12/26/2012, 08/05, 10/09/2010 Meningococcal Vaccine Completed 12/26/2012, 010 Hepatitis A Vaccines Aged Out No long er eligible based on patient's age to complete this topic Pneumococcal Vaccine: Pediatrics (0 to 5 Years) and At-Risk Patients (6 to 49) Years) Aged Out No longer eligible based on patient's age to complete this topic RSV under 20 months Aged Out No longe r eligible based on patient's age to complete this topic Rotavirus Vaccines Aged Out No longer eligible based on patient's age to complete this topic Procedures Procedure Name Priority Date/Time Associated Diagnosis Comments LIPID PANEL, STANDARD Routine 11/16/2024 12:10 PM EDT Screening for cardiovascular condition VITAMIN D 25 HYDROXY Routine 11/16/2024 12:10 PM EDT Vitamin D deficiency HM PAP/HPV Routine 10/06/2023 3:52 PM EST from Last 3 Months or Most Recently Relevant to Health Maintenance Results * Vitamin D 25 hydroxy 469670 (11/16/2024 12:10 PM EDT) Vitamin D, 25-OH, Total 43.0 30.0 - 100.0 ng/mL [facility] 1 Comment: Vitamin D deficiency has been defined by the [place] of Medicine and an Endocrine Society practice guideline as a level of serum 25-OH vitamin D less than 20 ng/mL (1,2). The Endocrine Society went on to further define vitamin D insufficiency as a level between 21 and 29 ng/mL (2). 1. IOM ([place] of Medicine). 2010. Dietary reference ?? intakes for calcium and D. [place]: The ?? National Academies Press. 2. Analia MF, [place] NC, Tigist STANLEY, et al. ?? Evaluation, treatment, and prevention of vitamin D ?? deficiency: an Endocrine Society clinical practice ?? guideline. JCEM. 2010; 96(7):1911-30. Blood Venous blood specimen / Unknown 11/16/2024 12:10 PM EDT 11/16/2024 Narrative [facility] 1 - 11/17/2024 6:05 AM EDT Performed at: ??01 - [facility] [address] ??[id number] Director Of Culture: Neda Wilkerson MD, Phone: ??[phone] [facility] LAB BLOOD ORDERABLES Final Res ult [facility] 1 * (ABNORMAL) Lipid Panel, Standard (11/16/2024 12:10 PM EDT) Cholesterol, Total 228(H) 100 - 199 mg/dL [facility] 1 Triglycerides 125 0 - 149 mg/dL [facility] 1 HDL Cholesterol 70 >39 mg/dL [facility] 1 VLDL Cholesterol Christoph 22 5 - 40 mg/dL [facility] 1 LDL Chol Calc (NIH) 136(H) 0 - 99 mg/dL [facility] 1 Blood Venous blood specimen / Unknown 11/16/2024 12:10 PM EDT 11/16/2024 Narrative [facility] 1 - 11/17/2024 6:05 AM EDT Performed at: ??01 - [facility] [address] ??[id number] Director Of Culture: Neda Wilkerson MD, Phone: ??[phone] [facility] LAB BLOOD ORDERABLES Final Res ult [facility] 1 * HM PAP/HPV (10/06/2023 3:52 PM EST) [facility] HEALTH MAINTENANCE Final Resul t from Last 3 Months or Most Recently Relevant to Health Maintenance Insurance [facility] HMO Care Teams Systems Integration Manager Relationship Specialty Start Date End Date Allie Fair DO [address] [place] [id number] PCP - General Family Medicine 10/27/23
--- OUTSIDE RECORDS SUMMARY | 2024-12-31 08:52 | XMS_ITS | Encounter Summary ---
Author Organization [employer] Address [address] [place] [address] Care Team Providers Care Undertaker Assistant Name Role Phone Allie Fair DO Primary Care Provider [phone] Encounter Details Date Type Department Care Team (Late st Contact Info) Description 12/02/2023 Orders Only [facility] [address] [place] [address] Allie Fair DO [address] [place] [address] Social History Tobacco Use Types Packs/Day Years Used Date Smoking Tobacco: Former Cigarettes Passive Smoke Exposure: Past Smokeless Tobacco: Never Comments:Vape Alcohol Use Standard Drinks/Week Comments Yes [...] is your housing situation today? 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 on file Not on fi le documented as of this encounter Plan of Treatment Upcoming Encounters Date Type Department Care Team (Late st Contact Info) Description 01/04/2025 8:45 AM EDT Office Visit Aaron [facility] [address] [place] [address] Allie Fair DO [address] [place] [address] documented as of this encounter Procedures Procedure Name Priority Date/Time Associated Diagnosis Comments HM PAP/HPV Routine 10/06/2023 3:52 PM EST HELICOBACTER PYLORI, UREA BREATH TEST Routine 11/23/2022 3:53 PM EDT documented in this encounter Results * HM PAP/HPV (10/06/2023 3:52 PM EST) Allie Fair DO HEALTH MAINTENANCE Final Resul t * Helicobacter pylori, Urea Breath Test (11/23/2022 3:53 PM EDT) Breath Oral cavity structure / Unknown us Allie Fair DO LAB BLOOD ORDERABLES Final Res ult documented in this encounter Visit Diagnoses Not on filedocumented in this encounter Additional Health Concerns Assessment Noted Time PHQ-9 Depression Total Score: 0 09/02/20 22 2:05 PM EST documented as of this encounter Care Teams Undertaker Assistant Relationship Specialty Start Date End Date Allie Fair DO [address] [place] [id number] PCP - General Family Medicine 10/27/23 documented as of this encounter
--- OUTSIDE RECORDS SUMMARY | 2024-12-31 08:52 | XMS_ITS | Encounter Summary ---
Author Organization [employer] Address [address] [place] [address] Care Team Providers Care Diaper Machine Tender Name Role Phone Allie Fair DO Primary Care Provider [phone] Reason for Visit * Reason Onset Date Comments Referral 08/13/2024 Encounter Details Date Type Department Care Team (Late st Contact Info) Description 08/13/2024 Telephone [facility] [address] [place] [address] Allie Fair DO [address] [place] [address] Referral Social History Tobacco Use Types Packs/Day Years [...] the past 12 months, has t he electric, gas, oil or water company threatened to [...] 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 * Telephone Encounter - Tiana Yonis - 08/13/2024 2:57 PM EST Pt called, would like referral to [facility] in [place] documented in this encounter Plan of Treatment Upcoming Encounters Date Type Department Care Team (Late st Contact Info) Description 01/04/2025 8:45 AM EDT Office Visit [facility] [address] [place] [address] Allie Fair DO [address] [place] [address] documented as of this encounter Visit Diagnoses Not on filedocumented in this encounter Additional Health Concerns Assessment Noted Time PHQ-9 Depression Total Score: 0 09/02/20 22 2:05 PM EST documented as of this encounter Care Teams Diaper Machine Tender Relationship Specialty Start Date End Date Allie Fair DO [address] [place] [address] PCP - General Family Medicine 10/27/23 documented as of this encounter
--- OUTSIDE RECORDS SUMMARY | 2024-12-31 08:52 | XMS_ITS | Encounter Summary ---
Author Organization [employer] Address [address] [place] [address] Care Team Providers Care [employer] Reading Teacher Name Role Phone Corinne Virgen Primary Care Provider Allie Fair DO Primary Care Provider [phone] Reason for Visit * Reason Onset Date Comments Results 09/15/2022 Encounter Details Date Type Department Care Team (Late st Contact Info) Description 09/15/[address] [facility] [address] [place] [address] Corinne Virgen FNP [address], [place] [id number] Results Social History Tobacco Use Types Packs/Day Years Used Date Smoking Tobacco: Every Day Cigarettes Smokeless Tobacco: Never Comments:Vape Alcohol Use Standard Drinks/Week Comments Not Currently 0 (1 standard drink = 0.6 oz pur e alcohol) Depression Answer Date Recorded Patient Health Questionnaire-9 Score 0 09/02/2022 Depression Answer Date Recorded Patient Health Questionnaire-2 Score 0 09/02/2022 Comments Unknown Sex and Gender Information Value Date Recorded Sex Assigned at Female 07/05/2022 10:38 AM EDT Legal Sex Female 10:38 AM EDT Gender Identity Female 07/05/2022 10:38 AM EDT Sexual Orientation Straight 07/05/2022 10 :38 AM EDT COVID-19 Exposure Response Date Recorded In the last 10 days, have yo u been in contact with someone who was confirmed or suspected to have Coronavirus/COVID-19? No / Unsure 09/02/2022 1:28 PM EST documented as of this encounter Miscellaneous Notes * Telephone Encounter - Laura Stein - 09/16/2022 12:43 PM EST Tc from pt returning call , Car Supervisor informed message below, Pt verbalizes understanding. documented in this encounter Plan of Treatment Upcoming Encounters Date Type Department Care Team (Late st Contact Info) Description 01/04/2025 8:45 AM EDT Office Visit [facility] MED[facility] [address] [place] [address] Allie Fair DO [address] [place] [address] documented as of this encounter Visit Diagnoses Not on filedocumented in this encounter Additional Health Concerns Assessment Noted Time PHQ-9 Depression Total Score: 0 09/02/20 22 2:05 PM EST documented as of this encounter Care Teams [employer] Reading Teacher Relationship Specialty Start Date End Date Corinne Virgen FNP [address] [place] [address] PCP - General Family Medicine 03/10/22 10/26/23 Allie Fair DO [address] [place] [address] PCP - General Family Medicine 10/27/23 documented as of this encounter
--- OUTSIDE RECORDS SUMMARY | 2024-12-31 08:52 | XMS_ITS | Encounter Summary ---
Author Organization [employer] Address [address] [place] [address] Care Team Providers Care Senior Embedded Software Engineer Name Role Phone Corinne Virgen Primary Care Provider [phone] Allie Fair DO Primary Care Provider [phone] Encounter Details Date Type Department Care Team (Late st Contact Info) Description 09/02/2022 Abstract [facility] [address] [place] [address] Corinne Virgen FNP [address] [place], [place] [phone] Social History Tobacco Use Types Packs/Day Years [...] PM EST documented as of this encounter Plan of Treatment Upcoming Encounters Date Type Department Care Team (Late st Contact Info) Description 01/04/2025 8:45 AM EDT Office Visit [facility] [address] [place] [address] Allie Fair DO [address] [place] [address] documented as of this encounter Visit Diagnoses Not on filedocumented in this encounter Additional Health Concerns Assessment Noted Time PHQ-9 Depression Total Score: 0 09/02/20 2:05 PM EST documented as of this encounter Care Teams Senior Embedded Software Engineer Relationship Specialty Start Date End Date Corinne Virgen FNP [address] [place] [id number] PCP - General Family Medicine 03/10/22 10/26/23 Allie Fair DO [address] [place] [address] PCP - General Family Medicine 10/27/23 documented as of this encounter
--- OUTSIDE RECORDS SUMMARY | 2024-12-31 08:52 | XMS_ITS | Encounter Summary ---
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 Carlos [place] Would like cb after it has been sent documented in this encounter Plan of Treatment Upcoming Encounters Date Type Department Care Team (Late st Contact Info) Description 01/04/2025 8:45 AM EDT Office Visit [facility] MEDICAL [address] [place] [address] Allie Fair DO [address] [place] [address] documented as of this encounter Visit Diagnoses Not on filedocumented in this encounter Additional Health Concerns Assessment Noted Time PHQ-9 Depression Total Score: 0 09/02/20 2:05 PM EST documented as of this encounter Care Teams Oak Tanner Relationship Specialty Start Date End Date Allie Fair DO [address] [place] [address] PCP - General Family Medicine 10/27/23 documented as of this encounter
== END 2024-12-31 08:28 | disposition home or self-care (01) ==
LOC: HO.US 08:27
PROVIDERS: PCP Family Medicine; Visit Provider Family Medicine
DX: R91.8 Other nonspecific abnormal finding of lung field (principal)
CPT/HCPCS: 76705

== ENCOUNTER → 2024-12-31 08:35 | Outpatient (BNV) | payer BC, SELFPAY | PROVIDERS: PCP Family Medicine; Visit Provider Radiology Diagnostic Radiology | DX: R19.8 Other specified symptoms and signs involving the digestive system and abdomen (principal) | CPT/HCPCS: 76705 ==